=== PATIENT | male | born 1985 | race African-American/Black ===

== ENCOUNTER 2019-10-30 14:39 | Emergency (ER) | payer MEDICAID ==
[~2019-10-30] VITALS: Ht 172.7 cm; Wt 99.8 kg
[2019-10-30 14:46] VITALS: BP 167/81
--- NOTE | 2019-10-30 14:52 | NUR ---
34 Y/O MALE C/O LEFT LEG LAC X2 NIGHTS AGO, PT WAS WALKING IN KITCHEN AND BUMPED INTO TRASH BAG, A PEICE OF GLASS CUT HIS LEG. NOT ACTIVELY BLEEDING AT THIS TIME. PATIENT STATES THAT PAIN IS VERY MILD. CMS+, ROM+. DOES NOT KNOW WHEN LAST TDAP WAS NO PMH NKA
[2019-10-30 15:24] VITALS: BP 167/81
--- NOTE | 2019-10-30 15:25 | NUR ---
Patient discharged with v/s stable. Written and verbal after care instructions given and explained. Patient alert, oriented and verbalized understanding of instructions. AMBULATORY with steady gait. All questions addressed prior to discharge. ID band removed. Patient advised to follow up with PMD. Rx of BACITRACIN, NAPROSYN given. Patient educated on indication of medication including possible reaction and side effects. Opportunity to ask questions provided and answered.
== END 2019-10-30 15:25 | disposition home or self-care (01) ==
LOC: MED 14:39
DX: S81.812A Laceration without foreign body, left lower leg, initial encounter (principal); W25.XXXA Contact with sharp glass, initial encounter; Y93.01 Activity, walking, marching and hiking; Y92.090 Kitchen in other non-institutional residence as the place of occurrence of the external cause; Y99.8 Other external cause status
CPT/HCPCS: 90471; 90715; 99283

== ENCOUNTER 2019-12-31 21:19 | Emergency (ER) | payer MEDICAID ==
[~2019-12-31] VITALS: Ht 172.7 cm; Wt 108.4 kg
[2019-12-31 21:21] VITALS: BP 148/73
--- NOTE | 2019-12-31 21:25 | NUR ---
PT AMBULATED TO ER BED 9 W/ STEADY GAIT.
--- NOTE | 2019-12-31 21:35 | NUR ---
Patient being evaluated by CHANDRIKA CARRASQUILLO.
--- NOTE | 2019-12-31 21:40 | NUR ---
Patient assessed, treated and discharged by ER MD no nursing interventions needed.
[2019-12-31 21:42] VITALS: BP 148/73
--- NOTE | 2019-12-31 21:42 | NUR ---
Patient discharged with v/s stable. Written and verbal after care instructions given and explained. Patient alert, oriented and verbalized understanding of instructions. Ambulatory with steady gait. All questions addressed prior to discharge. ID band removed. Patient advised to follow up with PMD. Rx of Benadryl & Doxycycline given. Patient educated on indication of medication including possible reaction and side effects. Opportunity to ask questions provided and answered.
== END 2019-12-31 21:42 | disposition home or self-care (01) ==
LOC: MED 21:19
DX: L73.1 Pseudofolliculitis barbae (principal); F17.210 Nicotine dependence, cigarettes, uncomplicated; I10 Essential (primary) hypertension
CPT/HCPCS: 99283

== ENCOUNTER 2020-10-27 22:20 | Emergency (ER) | payer MEDICAID ==
[~2020-10-27] VITALS: Ht 172.7 cm; Wt 104.3 kg
[2020-10-27 22:30] VITALS: BP 164/90
--- NOTE | 2020-10-27 22:33 | NUR ---
TO BED A/W BED AMBULATORY
--- NOTE | 2020-10-28 00:10 | NUR ---
SEEN AND EXAMINED BY JAVI WITH ORDERS AND CARRIED OUT
[2020-10-28] MEDS ORDERED: methylPREDNISolone SS 125 MG/2 ML VIAL IM ONE (00:15)
[2020-10-28] MEDS ORDERED: KETOROLAC 60 MG/2 ML VIAL IM ONE (00:15)
[2020-10-28] MEDS ORDERED: INDO-304 PO (00:34)
[2020-10-28] MEDS ORDERED: PRED20TA6 PO (00:35)
--- NOTE | 2020-10-28 00:50 | NUR ---
MEDICATED PER ERMDS ORDER, TOLERATED WELL.
[2020-10-28 01:20] VITALS: BP 150/85
--- NOTE | 2020-10-28 01:20 | NUR ---
Patient discharged with v/s stable. Written and verbal after care instructions given and explained. Patient alert, oriented and verbalized understanding of instructions. Ambulatory with steady gait. All questions addressed prior to discharge. ID band removed. Patient advised to follow up with PMD. Rx of INDOMETHACIN, PREDNISONE given. Patient educated on indication of medication including possible reaction and side effects. Opportunity to ask questions provided and answered.
== END 2020-10-28 01:20 | disposition home or self-care (01) ==
LOC: MED 22:20
DX: M10.072 Idiopathic gout, left ankle and foot (principal); I10 Essential (primary) hypertension; Z79.899 Other long term (current) drug therapy; Z79.1 Long term (current) use of non-steroidal anti-inflammatories (NSAID)
CPT/HCPCS: 73630; 96372; 99284; J1885; J2930

== ENCOUNTER 2021-01-09 07:39 | Emergency (ER) | payer MEDICAID ==
[~2021-01-09] VITALS: Ht 172.7 cm; Wt 104.3 kg
[~2021-01-09 07:39] MED LIST: INDO-304 PO; PRED20TA6 PO
[2021-01-09 07:44] VITALS: BP 184/101
--- NOTE | 2021-01-09 07:54 | NUR ---
DR. THOMPSON BEDSIDE EVALUATING PT
--- NOTE | 2021-01-09 08:01 | NUR ---
Male Heliotherapist accompanied male patient for with ERMD Dr. Levine.
--- NOTE | 2021-01-09 08:09 | NUR ---
XRAY BEDSIDE WITH PATIENT
--- NOTE | 2021-01-09 08:12 | NUR ---
35 Y MALE WITH C/O NECK, BACK, AND LEFT FOOT PAIN S/P FALL X 2 DAYS DUE TO A FALL. PT DENIES ANY LOC, BLURRED VISION, OR LIGHTHEADNESS AT THIS TIME. PT STATED HIS PAIN IS FELT MAINLY IN HIS ANKLE AND IS NON-RADITNG. PAIN IS CURRENTLY 10/10 AND SHARP IN FEELING. PT ALSO C/O ITCHING, REDNESS ON PENILE AREA X 1 WEEK. PT ADMITS TO UNPROTECTED SEX RECENTLY. PMH: HTN NKA
--- NOTE | 2021-01-09 08:30 | NUR ---
BLOOD WORK COLLECTED BEDSIDE AND WALKED OVER TO LAB BY EMT
--- NOTE | 2021-01-09 08:32 | NUR ---
PT PROVIDED WITH WATER CUP
--- NOTE | 2021-01-09 08:34 | NUR ---
URINE COLLECTED AND WALKED OVER TO LAB
--- NOTE | 2021-01-09 09:42 | NUR ---
Patient appears to be resting comfortably in bed. Vital Signs within normal limits. Respirations even and unlabored.
[2021-01-09 09:49] LABS: APPEARANCE,URINE CLEAR (CLEAR); BILIRUBIN,URINE NEGATIVE (NEGATIVE); BLOOD, URINE NEGATIVE (NEGATIVE); COLOR,URINE YELLOW (YELLOW); LEUKOCYTE ESTERASE ,URINE NEGATIVE (NEGATIVE); NITRITE, URINE NEGATIVE (NEGATIVE); PH,URINE 5.5 (5.0-9.0); UGLUCOSE NEGATIVE (NEGATIVE)
[2021-01-09] MEDS ORDERED: DOXY-690 PO (09:53)
[2021-01-09] MEDS ORDERED: ACYC400T14 PO (09:53)
[2021-01-09] MEDS ORDERED: cefTRIAXone 500 MG in LIDOCAINE MPF 1% 1 ML IM ONE (10:00)
[2021-01-09] MEDS ORDERED: cefTRIAXone 500 MG in LIDOCAINE MPF 1% 1 ML IM SCH (10:10)
[2021-01-09] MEDS ORDERED: cefTRIAXone 500 MG VIAL ONE (10:12)
[2021-01-09] MEDS ORDERED: LIDOCAINE MPF 1% 5 ML ONE (10:12)
--- NOTE | 2021-01-09 10:18 | NUR ---
Patient discharged with v/s stable. Written and verbal after care instructions given and explained. Patient alert, oriented and verbalized understanding of instructions. Ambulatory with steady gait. All questions addressed prior to discharge. ID band removed. Patient advised to follow up with PMD. Rx of ZOVIRAX, VIBRAMYCIN given. Patient educated on indication of medication including possible reaction and side effects. Opportunity to ask questions provided and answered.
[2021-01-09 10:23] VITALS: BP 156/115
== END 2021-01-09 10:18 | disposition home or self-care (01) ==
LOC: MED 07:39
DX: M79.672 Pain in left foot (principal); M54.2 Cervicalgia; M54.6 Pain in thoracic spine; N48.9 Disorder of penis, unspecified; I10 Essential (primary) hypertension; Z79.899 Other long term (current) drug therapy; Z98.890 Other specified postprocedural states
CPT/HCPCS: 36415; 71045; 73630; 81003; 86703; 87491; 96372; 99284; J0696; J2001; Q0092

== ENCOUNTER 2021-01-12 13:57 | Emergency (ER) | payer MEDICAID ==
[~2021-01-12] VITALS: Ht 172.7 cm; Wt 104.3 kg
[~2021-01-12 13:57] MED LIST changes: +ACYC400T14 PO; +DOXY-690 PO
[2021-01-12 14:13] VITALS: BP 183/79
--- NOTE | 2021-01-12 14:17 | NUR ---
PATIENT W/C ASSISTED TO BED 11.
[2021-01-12] MEDS ORDERED: KETOROLAC 30 MG/ML VIAL IM ONE (14:30)
[2021-01-12] MEDS ORDERED: methylPREDNISolone SS 125 MG in WATER STERILE 2 ML IM ONE (14:30)
[2021-01-12] MEDS ORDERED: WATER STERILE 10 ML MC ONE (14:35)
[2021-01-12] MEDS ORDERED: methylPREDNISolone SS 125 MG/2 ML VIAL ONE (14:35)
[2021-01-12] MEDS ORDERED: METH4TAB3 PO (14:50)
[2021-01-12] MEDS ORDERED: NAPR-54 PO (14:50)
[2021-01-12] MEDS ORDERED: PRED20TA5 PO (14:50)
--- NOTE | 2021-01-12 15:10 | NUR ---
Patient discharged with v/s stable. Written and verbal after care instructions given and explained. Patient alert, oriented and verbalized understanding of instructions. Ambulatory Assisted with steady gait. All questions addressed prior to discharge. ID band removed. Patient advised to follow up with PMD. Rx of Medrol, Naproxen and Prednisone given. Patient educated on indication of medication including possible reaction and side effects. Opportunity to ask questions provided and answered.
== END 2021-01-12 15:10 | disposition home or self-care (01) ==
LOC: MED 13:57
DX: M10.072 Idiopathic gout, left ankle and foot (principal); I10 Essential (primary) hypertension; Z79.899 Other long term (current) drug therapy
CPT/HCPCS: 96372; 99284; J1885; J2930

== ENCOUNTER 2021-01-15 18:23 | Emergency (ER) | payer MEDICAID ==
[~2021-01-15] VITALS: Ht 172.7 cm; Wt 111.1 kg
[~2021-01-15 18:23] MED LIST changes: +METH4TAB3 PO; +NAPR-54 PO; +PRED20TA5 PO
[2021-01-15 18:39] VITALS: BP 152/123
--- NOTE | 2021-01-15 19:38 | NUR ---
PT TAKEN TO BED 4
--- NOTE | 2021-01-15 20:20 | NUR ---
Dr. Yo examining patient.
[2021-01-15 20:35] VITALS: BP 152/123
== END 2021-01-15 20:35 | disposition home or self-care (01) ==
LOC: MED 18:23
DX: R06.6 Hiccough (principal); I10 Essential (primary) hypertension; Z79.899 Other long term (current) drug therapy
CPT/HCPCS: 99282

== ENCOUNTER 2021-10-15 04:50 | Emergency (ER) | payer MEDICAID ==
[~2021-10-15] VITALS: Ht 175.3 cm; Wt 104.3 kg
--- NOTE | 2021-10-15 04:52 | NUR ---
CALLED TO TRIAGE, NO ANSWER
[2021-10-15 05:01] VITALS: BP 158/86
--- NOTE | 2021-10-15 05:15 | NUR ---
36 Y/O MALE WAS CUT FROM A PLANK FENCE AROUND MIDNIGHT. PT FAMILY WRAPPED A TSHIRT AROUND WOUND TO STOP BLEEDING BUT BLEEDING WAS STOPPING. UPON ARRIVAL PT WAS A&O X4 AMBULATORY WITH EVEN AND STEADY GAIT. PT REPORTS PAIN 10/. WOUND WAS ABOUT 6 INCHES IN LENGTH. PT DENIES N/V/F/D/CHEST PAIN/ SOB.
[2021-10-15] MEDS ORDERED: ONDANSETRON 4 MG/2 ML VIAL IVP ONE (05:20)
[2021-10-15] MEDS ORDERED: MORPHINE SULFATE 4 MG/ML SYR IVP ONE ×2 (05:20)
[2021-10-15] MEDS ORDERED: LIDOCAINE/EPI 1% 1:100000 20 ML VIAL INJ ONE (06:10)
--- NOTE | 2021-10-15 06:10 | NUR ---
Dr. Tapia examining patient.
[2021-10-15] MEDS ORDERED: BACITRACIN OINT 500 UNITS/GM PKT TP ONE ×2 (07:03→07:05)
[2021-10-15] MEDS ORDERED: CEPH-588 PO (07:14)
[2021-10-15] MEDS ORDERED: TRAM50TA1 PO (07:15)
[2021-10-15] MEDS ORDERED: IBUP-2213 PO (07:15)
--- NOTE | 2021-10-15 07:20 | NUR ---
REPORT RECEIVED FROM RC BRYSON. ASSUMED CARE AT THIS TIME
--- NOTE | 2021-10-15 07:20 | NUR ---
Pt report given to BRAYDON BEAL. Transfer of care at this time.
--- NOTE | 2021-10-15 07:30 | NUR ---
PT AT REST AND SLEEPING. NO VISIBLE DISTRESS. RESPIRATIONS EVEN AND UNLABORED.
[2021-10-15 08:12] VITALS: BP 159/82
--- NOTE | 2021-10-15 08:12 | NUR ---
The patient's care was reviewed and supervised by Phil Mart RN.
--- NOTE | 2021-10-15 08:12 | NUR ---
Patient discharged with v/s stable. Written and verbal after care instructions FOR LACERATION CARE given and explained. Patient alert, oriented and verbalized understanding of instructions. Ambulatory with steady gait. All questions addressed prior to discharge. ID band removed. Patient advised to follow up with PMD. Rx of KEFLEX,IBUPROFEN, ULTRAM given. Opportunity to ask questions provided and answered.
== END 2021-10-15 08:12 | disposition home or self-care (01) ==
LOC: MED 04:50
DX: S46.221A Laceration of muscle, fascia and tendon of other parts of biceps, right arm, initial encounter (principal); I10 Essential (primary) hypertension; X58.XXXA Exposure to other specified factors, initial encounter; Y93.89 Activity, other specified; Y92.89 Other specified places as the place of occurrence of the external cause; Y99.8 Other external cause status
CPT/HCPCS: 12005; 90471; 90715; 96374; 96375; 99284; J2001; J2270; J2405

== ENCOUNTER 2021-10-20 12:07 | Emergency (ER) | payer MEDICAID ==
[~2021-10-20] VITALS: Ht 172.7 cm; Wt 107.5 kg
[~2021-10-20 12:07] MED LIST changes: +CEPH-588 PO; +IBUP-2213 PO; +TRAM50TA1 PO
[2021-10-20 12:14] VITALS: BP_SYST 147; BP_SYST 192; BP_DIAS 86; BP_DIAS 96
--- NOTE | 2021-10-20 12:20 | NUR ---
BIB SELF FOR WOUND CHECK. SUTIRE PLACE HERE 4 DAYS AGO.
[2021-10-20] MEDS ORDERED: BACITRACIN OINT 500 UNITS/GM PKT TP ONE (12:40)
[2021-10-20 13:11] VITALS: BP 147/86
--- NOTE | 2021-10-20 13:11 | NUR ---
Patient discharged with v/s stable. Written and verbal after care instructions given and explained. Patient verbalized understanding. Ambulatory with steady gait. All questions addressed prior to discharge. Advised to follow up with PMD.
== END 2021-10-20 13:11 | disposition home or self-care (01) ==
LOC: MED 12:07
DX: S46.221D Laceration of muscle, fascia and tendon of other parts of biceps, right arm, subsequent encounter (principal); Z48.02 Encounter for removal of sutures; I10 Essential (primary) hypertension; X58.XXXD Exposure to other specified factors, subsequent encounter
CPT/HCPCS: 99282

== ENCOUNTER 2021-10-25 08:37 | Emergency (ER) | payer MEDICAID ==
[~2021-10-25] VITALS: Ht 175.3 cm; Wt 105.3 kg
[2021-10-25 08:50] VITALS: BP 163/107
--- NOTE | 2021-10-25 08:57 | NUR ---
Pt ambulated to bed 03.
--- NOTE | 2021-10-25 09:15 | NUR ---
36YO MALE PT IN FOR SUTURE REMOVAL IN R ARM . PT WAS PREVIOUSLY SEEN IN ER DUE TO LACERATION REPAIRED W/ 15 SUTURES. ALL SUTURES PRESENT, SITE CLEAN W/ NO DRAINAGE NOTED. PT HAS FULL ROM WITH CAP <3 THROUGHOUT. DENIES N/V/D OR CHEST PAIN. PT AAOX4, NO VISIBLE DISTRESS, RESPIRATIONS EVEN AND UNLABORED. HX: DENIES NKA
--- NOTE | 2021-10-25 09:35 | NUR ---
Patient discharged with v/s stable. Written and verbal after care instructions given and explained. Patient verbalized understanding. Ambulatory with steady gait. All questions addressed prior to discharge. Advised to follow up with PMD. PER MD JAMES , PT OK TO D/C WITH CURRENT BP
--- NOTE | 2021-10-25 09:36 | NUR ---
The patient's care was reviewed and supervised by Vee Hubbard RN.
== END 2021-10-25 09:35 | disposition home or self-care (01) ==
LOC: MED 08:37
DX: S46.221D Laceration of muscle, fascia and tendon of other parts of biceps, right arm, subsequent encounter (principal); Z48.02 Encounter for removal of sutures; I10 Essential (primary) hypertension; X58.XXXD Exposure to other specified factors, subsequent encounter
CPT/HCPCS: 99281

== ENCOUNTER 2021-11-01 08:00 | Emergency (ER) | payer MEDICAID ==
[~2021-11-01] VITALS: Ht 175.3 cm; Wt 106.6 kg
--- NOTE | 2021-11-01 08:19 | NUR ---
CALLED PT NOT FOUND IN LOBBY OR PARKING LOT
[2021-11-01 08:31] VITALS: BP 156/77
--- NOTE | 2021-11-01 08:34 | NUR ---
PT AMBULATED TO LOBBY WITH STEADY GAIT
--- NOTE | 2021-11-01 09:09 | NUR ---
36 Y/O MALE BIB SELF PRESENTS IN ED FOR SUTURE REMOVAL RECHECK. PER PT HE HAD SUTURES ON THE RIGHT UNDERARM FOR AN ABSCESS REMOVED 10/25/21. STATES THAT HE FEELS "WATER" ON THE AREA. AREA APPEARS DRY IN TRIAGE, NO DRAINAGE NOTED NKA PMH: HTN RX: ATENOLOL, HYDROCHLOROTHIAZIDE
--- NOTE | 2021-11-01 11:51 | NUR ---
NAEEM WESTON AT [facility] FOR EVAL
[2021-11-01 12:18] VITALS: BP 137/67
== END 2021-11-01 12:18 | disposition home or self-care (01) ==
LOC: MED 08:00
DX: S41.111D Laceration without foreign body of right upper arm, subsequent encounter (principal); I10 Essential (primary) hypertension; Z79.899 Other long term (current) drug therapy; X58.XXXD Exposure to other specified factors, subsequent encounter
CPT/HCPCS: 99281

== ENCOUNTER 2021-12-22 19:04 | Emergency (ER) | payer MEDICAID ==
[~2021-12-22] VITALS: Ht 172.7 cm; Wt 107.0 kg
[2021-12-22 19:12] VITALS: BP 166/107
--- NOTE | 2021-12-22 19:15 | NUR ---
TO ER BED 4
--- NOTE | 2021-12-22 19:21 | NUR ---
36/M WALKED IN C/O RIGHT ANKLE PAIN ONSET 5 DAYS. DENIES FALL OR INJURY. NO DEFORMITY NOTED. VITALS STABLE. pmh: htn nka
--- NOTE | 2021-12-22 19:22 | NUR ---
ASSUME CARE OF PT, REPORT GIVEN BY GAIL RN, PT C/O RIGHT ANKLE PAIN 10/20, PT STATES HE TRIPPED AND ROLLED HIS ANKLE. RIGHT ANKLE SWOLLEN ON THE LATERAL SIDE, ELEVATED LEG AND PLACED ICE PACK, HX- HTN. +PMSC TO RIGHT ANKLE.
[2021-12-22] MEDS ORDERED: KETOROLAC 30 MG/ML VIAL IM ONE (19:35)
[2021-12-22] MEDS ORDERED: PRED20TA5 PO (21:01)
[2021-12-22] MEDS ORDERED: NAPR-54 PO (21:01)
--- NOTE | 2021-12-22 21:16 | NUR ---
INSTRUCTIONS FOR USING CRUTCHES GIVEN PRIOR TO DISCHARGE. Addendum: 12/22/21 at 7 by STEPHANIE INSTRUCTIONS FOR CRUTCHES GIVEN PRIOR TO DISCHARGE AND PATIENT DEMONSTRATED PROPER USE.
[2021-12-22 21:21] VITALS: BP 134/70
--- NOTE | 2021-12-22 21:22 | NUR ---
Crutches dispensed. Taught proper use, patient returned demo.
--- NOTE | 2021-12-22 21:23 | NUR ---
Patient discharged with v/s stable. Written and verbal after care instructions given and explained. Patient alert, oriented and verbalized understanding of instructions. Ambulatory with USE OF CRUTCHES. All questions addressed prior to discharge. ID band removed. Patient advised to follow up with PMD. Rx SENT TO PHARMACY. Patient educated on indication of medication including possible reaction and side effects. Opportunity to ask questions provided and answered.
== END 2021-12-22 21:23 | disposition home or self-care (01) ==
LOC: MED 19:04
DX: M25.571 Pain in right ankle and joints of right foot (principal); R03.0 Elevated blood-pressure reading, without diagnosis of hypertension; I10 Essential (primary) hypertension; Z79.899 Other long term (current) drug therapy
CPT/HCPCS: 73610; 96372; 99283; J1885; Q0092

== ENCOUNTER 2022-01-26 22:25 | Emergency (ER) | payer MEDICAID ==
[~2022-01-26] VITALS: Ht 172.7 cm; Wt 104.3 kg
[~2022-01-26 22:25] MED LIST changes: +TRAM-748 PO; -TRAM50TA1 PO
[2022-01-26 23:09] VITALS: BP 144/81
--- NOTE | 2022-01-27 00:23 | NUR ---
Dr. Jett examining patient.
[2022-01-27] MEDS ORDERED: AMOX1TAB8 PO (00:32)
[2022-01-27] MEDS ORDERED: BENZ200C4 PO (00:32)
[2022-01-27 00:45] VITALS: BP 130/81
--- NOTE | 2022-01-27 00:45 | NUR ---
Patient discharged with v/s stable. Written and verbal after care instructions given and explained by Dr. Jett. Patient alert, oriented and verbalized understanding of instructions. Ambulatory with steady gait. All questions addressed prior to discharge. ID band removed. Patient advised to follow up with PMD. Rx of Amox-clav and Benzonatate given. Patient educated on indication of medication including possible reaction and side effects. Opportunity to ask questions provided and answered.
== END 2022-01-27 00:45 | disposition home or self-care (01) ==
LOC: MED 22:25
DX: J20.9 Acute bronchitis, unspecified (principal); I10 Essential (primary) hypertension; Z79.899 Other long term (current) drug therapy; Z98.890 Other specified postprocedural states
CPT/HCPCS: 99283